=== PATIENT | female | born 1975 | race Caucasian/White ===

== ENCOUNTER 2016-08-20 14:16 | Emergency (ER) | payer MEDICAID, MEDICARE, OTHER ==
[~2016-08-20] VITALS: Ht 160 cm; Wt 62.0 kg
[~2016-08-20 14:16] MED LIST: AMAN100UDC PEG; AMBI5TAB PO; BACL10TA PEG; DESI10TA TUBE; DIAZ5 PO; ESCI10TA TUBE; METHY10 TUBE; MODA200T12 TUBE; POTA10SO12 TUBE; VALP250S18 PEG
[2016-08-20 14:44] VITALS: BP 131/66; PULSE 98; RESP 15; TEMP 98.3; O2SAT 95
--- NOTE | 2016-08-20 14:54 | PD ---
HPI Chief Complaint: altered mental status Time Seen by Provider: 14:44 Travel History International Travel<30 days: No Contact w/Intl Traveler<30days: No Traveled to known affect area: No History of Present Illness HPI 41-year-old female with history of traumatic brain injury, contractures, presents to the ER today brought in by her mom because her mom states that over the last few days patient has been getting less responsive, having higher temperature than her usual, and mom has noticed bleeding from her right ear. Mom states that she has had her ears irrigated for earwax recently. Mom denies any other issues. Patient is nonverbal and unable to give me any further history. Modifying Factors: None Associated Signs & Symptoms: Elevated temperatures, altered mental status, right ear bleeding Risk factors: History of TBI PFSH Past Medical History Seizures: Yes Past Surgical History Section: Yes Neurologic Surgery: Yes Other Surgery: Yes (BREAT AUGMENTATION) Social History Alcohol Use: No Tobacco Use: No Substance Use: No Allergies-Medications (Allergen,Severity, Reaction): Coded Allergies: Amoxicillin (Verified Allergy, Severe, RASH, 04/24/16) Bactrim (Verified Allergy, Severe, RASH, 04/24/16) Cipro (Verified Allergy, Intermediate, Rash, 04/24/16) Reported Meds & Prescriptions Reported Meds & Active Scripts Active Ritalin IR (Methylphenidate HCl) 10 Mg Tab 10 Mg TUBE BIDAC Escitalopram (Escitalopram Oxalate) 10 Mg Tab 10 Mg TUBE DAILY Modafinil 200 Mg Tab 200 Mg TUBE BID Reported Desipramine (Desipramine HCl) 10 Mg Tab 10 Mg TUBE DAILY Ambien (Zolpidem Tartrate) 5 Mg Tab 5 Mg PO BID@0600,0900 Baclofen 10 Mg Tab 15 Mg PEG QID Valium (Diazepam) 5 Mg Tab 5 Mg PO QID PRN Amantadine Liq (Amantadine HCl) 50 Mg/5 Ml Soln 50 Mg PEG BID@0800,1200 Depakene Liq (Valproic Acid) 250 Mg/5 Ml Syp 500 Mg PEG TID 60 Days Review of Systems ROS Limitations: Altered Mental Status Physical Exam Narrative GENERAL: Well-nourished, contracted middle age white female patient who is awake , not in acute distress. SKIN: Warm and dry. HEAD: Normocephalic. EYES: No scleral icterus. No injection or drainage. Ears: Left TM intact, with no bulging or erythema. There is notable red blood in the right canal, punctured TM notable. NECK: Supple, trachea midline. CARDIOVASCULAR: Regular rate and rhythm without murmurs, gallops, or rubs. RESPIRATORY: Breath sounds equal bilaterally. No accessory muscle use. GASTROINTESTINAL: Abdomen soft, non-tender, nondistended. G-tube in place. MUSCULOSKELETAL: No cyanosis, or edema. BACK: Nontender without obvious deformity. No CVA tenderness. Data Data Last Documented VS Vital Signs Date Time Temp Pulse Resp B/P Pulse Ox O2 Delivery O2 Flow Rate FiO2 08/20/16 15:00 98 Room Air 08/20/16 15:00 84 20 08/20/16 14:44 98.3 131/66 Orders Electrocardiogram (08/20/16 14:44) Complete Blood Count With Diff (08/20/16 14:44) Comprehensive Metabolic Panel (08/20/16 14:44) Lactic Acid Sepsis Protocol (08/20/16 14:44) Urinalysis - C+S If Indicated (08/20/16 14:44) Blood Culture (08/20/16 14:44) Chest, Single Ap (08/20/16 14:44) Blood Glucose (08/20/16 14:44) Ecg Monitoring (08/20/16 14:44) Iv Access Insert/Monitor (08/20/16 14:44) Oximetry (08/20/16 14:44) Oxygen Administration (08/20/16 14:44) Ct Brain W/O Iv Contrast(Rout) (08/20/16 14:44) Consult Vascular Access Team (08/20/16 ) Vascular Poc Ultrasound (08/20/16 ) Sodium Chlor 0.9% 1000 Ml Inj (Ns 1000 M (08/20/16 17:00) Labs Laboratory Tests Test 08/20/16 08/20/16 08/20/16 16:02 16:03 16:25 White Blood Count 6.3 TH/MM3 Red Blood Count 4.12 MIL/MM3 Hemoglobin 13.2 GM/DL Hematocrit 39.3 % Mean Corpuscular Volume 95.3 FL Mean Corpuscular Hemoglobin 32.0 PG Mean Corpuscular Hemoglobin 33.6 % Concent Red Cell Distribution Width 12.5 % Platelet Count 282 TH/MM3 Mean Platelet Volume 9.7 FL Neutrophils (%) (Auto) 62.8 % Lymphocytes (%) (Auto) 27.1 % Monocytes (%) (Auto) 7.3 % Eosinophils (%) (Auto) 2.5 % Basophils (%) (Auto) 0.3 % Neutrophils # (Auto) 3.9 TH/MM3 Lymphocytes # (Auto) 1.7 TH/MM3 Monocytes # (Auto) 0.5 TH/MM3 Eosinophils # (Auto) 0.2 TH/MM3 Basophils # (Auto) 0.0 TH/MM3 CBC Comment DIFF FINAL Differential Comment Sodium Level 141 MEQ/L Potassium Level 4.5 MEQ/L Chloride Level 108 MEQ/L Carbon Dioxide Level 28.3 MEQ/L Anion Gap 5 MEQ/L Blood Urea Nitrogen 9 MG/DL Creatinine 0.53 MG/DL Estimat Glomerular Filtration 127 ML/MIN Rate Random Glucose 79 MG/DL Calcium Level 8.9 MG/DL Total Bilirubin 0.3 MG/DL Aspartate Amino Transf 9 U/L (AST/SGOT) Alanine Aminotransferase 32 U/L (ALT/SGPT) Alkaline Phosphatase 96 U/L Total Protein 7.2 GM/DL Albumin 3.6 GM/DL Lactic Acid Level 0.8 mmol/L Urine Color LIGHT-YELLOW Urine Turbidity CLEAR Urine pH 5.5 Urine Specific [place] 1.008 Urine Protein NEG mg/dL Urine Glucose (UA) NEG mg/dL Urine Ketones 10 mg/dL Urine Occult Blood NEG Urine Nitrite NEG Urine Bilirubin NEG Urine Urobilinogen LESS THAN 2.0 MG/DL Urine Leukocyte Esterase NEG Urine RBC LESS THAN 1 /hpf Urine WBC 1 /hpf Urine Mucus FEW /lpf Microscopic Urinalysis Comment CATH-CULT NOT IND MDM Medical Decision Making Medical Screen Exam Complete: Yes Emergency Medical Condition: Yes Medical Record Reviewed: Yes Interpretation(s) Laboratory Tests Test 08/20/16 08/20/16 16:02 16:25 Chloride Level 108 MEQ/L (98-107) Aspartate Amino Transf 9 U/L (15-37) (AST/SGOT) Urine Ketones 10 mg/dL (NEG) Urine Mucus FEW /lpf (OCC) Last [address] 08/20/16 7974 Signed Impressions: Service Date/Time: Saturday, August 20, 2016 15:14 - CONCLUSION: 1. 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 2. Ventricles unchanged in size from prior. There is a ventriculostomy in good position. Jason Valdovinos MD Chest X-Ray 08/20/16 1444 Signed Impressions: Service Date/Time: Saturday, August 20, 2016 15:13 - CONCLUSION: No acute disease. There is no evidence of pneumonia. Alejandro Gamez MD Differential Diagnosis Altered mental status, elevated temperature, right ear bleedingotitis media versus sepsis versus malfunctioning CSF shunt versus acute intracranial processes Narrative Course CAT scan did not show any signs of acute intracranial processes. Chest x-ray was unremarkable. Lab work did not indicate significant dehydration or metabolic issues or any signs of sepsis. She has a right TM perforation. I have notified mom not to put any fluids into the right ear. Follow-up with ENT. At this point, I do not see any other significant acute issues. Vital signs are stable in the ER. I have offered to admit the patient as an observation but at this point, mom states that she is comfortable to take her home. She should follow-up with her physician. Return for any worsening in symptoms as needed. The plan has been discussed with mom and she states understanding. Diagnosis Primary Impression: UNSPECIFIED PERFORATION OF TYMPANIC MEMBRANE, RIGHT EAR Additional Impression: ALTERED MENTAL STATUS, UNSPECIFIED Disposition: DISCHARGE HOME Condition: Stable Linda Sanz MD Aug 20, 2016 14:54
[2016-08-20 15:00] VITALS: O2SAT 98
--- NOTE | 2016-08-20 15:29 | RADRPT ---
EXAM DATE/TIME: 08/20/2016 15:13 [facility] COMPARISON: CHEST SINGLE AP, June 14, 2012, 3:36. INDICATIONS : Fever for 2 days. MEDICAL HISTORY : Traumatic brain injury; brain bleed. SURGICAL HISTORY : Craniotomy. GUN FITTER Shunt ENCOUNTER: Initial ACUITY: 2 days PAIN SCORE: Non-responsive. LOCATION: Bilateral chest FINDINGS: A single view of the chest demonstrates the lungs to be symmetrically aerated without evidence of mas s, infiltrate or effusion. The cardiomediastinal contours are unremarkable. Osseous structures are intact. Shunt catheter tubing is projected over the chest and upper abdomen. There are multiple overl mica cardiac leads. CONCLUSION: No acute disease. There is no evidence of pneumonia. Alejandro Gamez MD on August 20, 2016 at 15:24 Board Certified Radiologist. This report was verified electronically.
--- NOTE | 2016-08-20 15:38 | RADRPT ---
EXAM DATE/TIME: 08/20/2016 15:14 [facility] COMPARISON: CT BRAIN W/O CONTRAST, April 24, 2016, 16:46. INDICATIONS : Altered mental status. RADIATION DOSE: 56.35 CTDIvol (mGy) MEDICAL HISTORY : Seizures. SURGICAL HISTORY : Craniotomy. ENCOUNTER: Initial ACUITY: 1 day PAIN SCALE: Non-responsive LOCATION: cranial TECHNIQUE: Multiple contiguous axial images were obtained of the head. Using automated exposure control and adj ustment of the mA and/or kV according to patient size, radiation dose was kept as low as reasonably a chievable to obtain optimal diagnostic quality images. FINDINGS: There is a sizable area of encephalomalacia involving the right temporal and frontal cortex. There is a ventriculostomy which enters from a left frontal approach. The ventricles are normal in size and c onfiguration. There is no acute intracranial hemorrhage. No abnormal extra-axial fluid collections are seen. The ap pearance of the posterior fossa is unremarkable. The examination is stable compared to previous dated 04/24/16. Bone windowed images demonstrate postcraniotomy changes along the right parietal region. The osseous structures are otherwise intact. CONCLUSION: 1. 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 2. Ventricles unchanged in size from prior. There is a ventriculostomy in good position. Jason Valdovinos MD on August 20, 2016 at 15:35 Board Certified Radiologist. This report was verified electronically.
[2016-08-20 16:22] LABS: AUTOMATED NEUTROPHIL # 3.9 TH/MM3 (1.8-7.7); BASOPHIL % 0.3 % (0.0-2.0); EOSINOPHIL # 0.2 TH/MM3 (0-0.4); EOSINOPHIL % 2.5 % (0.0-4.0); HEMATOCRIT 39.3 % (35.0-46.0); HEMO FLAGS DIFF FINAL; LYMPH % 27.1 % (9.0-44.0); LYMPHOCYTE # 1.7 TH/MM3 (1.0-4.8); MEAN CELL VOLUME 95.3 FL (80.0-100.0); MEAN CORPUSCULAR HGB CONC 33.6 % (32.0-36.0); MONO % 7.3 % (0.0-8.0); NEUT % 62.8 % (16.0-70.0); PLATELET COUNT 282 TH/MM3 (150-450); RED BLOOD COUNT 4.12 MIL/MM3 (4.00-5.30); RED CELL DISTRIBUTION WIDTH 12.5 % (11.6-17.2); WHITE BLOOD COUNT 6.3 TH/MM3 (4.0-11.0)
[2016-08-20 16:43] LABS: ANION GAP 5 MEQ/L (5-15); AST (GOT) 9 U/L (15-37); BICARBONATE 28.3 MEQ/L (21.0-32.0); BLOOD UREA NITROGEN 9 MG/DL (7-18); CHLORIDE 108 MEQ/L (98-107); GLOMERULAR FILTRATION RATE 127 ML/MIN (>89); POTASSIUM 4.5 MEQ/L (3.5-5.1); SODIUM (NA) 141 MEQ/L (136-145)
[2016-08-20 16:46] LABS: ALKALINE PHOSPHATASE 96 U/L (45-117); ALT (GPT) 32 U/L (10-53); TOTAL BILIRUBIN ADULT 0.3 MG/DL (0.2-1.0)
[2016-08-20 16:51] LABS: BLOOD, URINE NEG (NEG); GLUCOSE,URINE NEG (NEG); KETONE, URINE 10 mg/dL (NEG); MUCUS URINE FEW /lpf (OCC); NITRITE,URINE NEG (NEG); PH, URINE 5.5 (5.0-8.5); URINE COLOR LIGHT-YELLOW (YELLW/STRAW)
[2016-08-20 16:52] LABS: COMMENT (UR) CATH-CULT NOT IND; CULTURE IF INDICATED CATH CULTURE NOT IND
[2016-08-20] MEDS ORDERED: SODIUM CHLOR 0.9% 1000 ML INJ 1,000 ML IV ONE (17:00)
[2016-08-20 18:00] VITALS: BP 129/70; PULSE 83; RESP 15; O2SAT 97
--- NOTE | 2016-08-21 08:49 | EKG ---
Date Performed: 08/20/2016 Time Performed: 15:39:46 PTAGE: 41 years EKG: Sinus rhythm NORMAL ECG NO PREVIOUS TRACING DOCTOR: Anup Daniel Interpretating Date/Time 08/21/2016 08:43:50
[2016-09-11] MEDS ORDERED: METHY10 TUBE (15:36)
[2016-11-13] MEDS ORDERED: CLIN75SO G-TUBE (21:26)
[2016-11-13] MEDS ORDERED: NYST15T TOPICAL (21:26)
[2016-12-04] MEDS ORDERED: DESI10TA TUBE (16:40)
== END 2016-08-20 18:30 | disposition home or self-care (01) ==
LOC: NEPC 14:16
DX: R41.82 Altered mental status, unspecified (principal); H72.90 Unspecified perforation of tympanic membrane, unspecified ear; H92.21 Otorrhagia, right ear; R56.9 Unspecified convulsions; G93.89 Other specified disorders of brain; R50.9 Fever, unspecified; Z87.820 Personal history of traumatic brain injury
CPT/HCPCS: 70450; 71010; 80053; 81001; 83605; 85025; 87040; 93005; 96360; 99285; J7030

== ENCOUNTER 2017-04-01 09:45 | Emergency (ER) | payer MEDICARE, OTHER ==
[~2017-04-01] VITALS: Ht 165.1 cm; Wt 80.0 kg
[~2017-04-01 09:45] MED LIST changes: +CLIN75SO G-TUBE; +NYST15T TOPICAL; -POTA10SO12 TUBE
[2017-04-01 09:54] VITALS: BP 122/77; PULSE 72; RESP 18; O2SAT 99
--- NOTE | 2017-04-01 10:09 | PD ---
HPI Chief Complaint: Allergic/Adverse Reaction Time Seen by Provider: 10:01 Travel History International Travel<30 days: No Contact w/Intl Traveler<30days: No Traveled to known affect area: No History of Present Illness HPI 42-year-old female patient with history of traumatic brain injury, in a vegetative state, living at home with home health care, presents to the ER today brought in by mom because of vomiting this morning and mom states that she noticed some redness on the left hand and was concerned of a allergic reaction, gave her Benadryl. She is nonverbal and not able to give any further history. Mom states that she is been a little bit more lethargic this morning as well than usual. Modifying Factors: None Associated Signs & Symptoms: Vomiting, altered mental status, left hand swelling Risk Factors: Traumatic brain injury PFSH Past Medical History Diminished Hearing: No Neurologic: Yes (TBI) Seizures: Yes ?: Not Past Surgical History Abdominal Surgery: Yes (G-TUBE) Section: Yes Neurologic Surgery: Yes (FLAP/ SHUNT BRAIN SX) Other Surgery: Yes (BREAT AUGMENTATION) Social History Alcohol Use: No Tobacco Use: No Substance Use: No Allergies-Medications (Allergen,Severity, Reaction): Coded Allergies: amoxicillin (Unverified Allergy, Severe, RASH, 04/01/17) sulfamethoxazole (Unverified Allergy, Severe, RASH, 04/01/17) trimethoprim (Unverified Allergy, Severe, RASH, 04/01/17) ciprofloxacin (Unverified Allergy, Intermediate, Rash, 04/01/17) Reported Meds & Prescriptions Reported Meds & Active Scripts Active Macrobid (Nitrofurantoin Monoh/Nitrofur Macro) 100 Mg Cap 100 Mg PO BID 7 Days Desipramine (Desipramine HCl) 10 Mg Tab 10 Mg TUBE DAILY Nystatin Topical (Nystatin) 100,000 unit/gm Cream 1 Applic TOPICAL BID Clindamycin Liq 75 Mg/5 Ml Soln 150 Mg G-TUBE Q6H Ritalin IR (Methylphenidate HCl) 10 Mg Tab 10 Mg TUBE BIDAC Escitalopram (Escitalopram Oxalate) 10 Mg Tab 10 Mg TUBE DAILY Modafinil 200 Mg Tab 200 Mg TUBE BID Reported Ambien (Zolpidem Tartrate) 5 Mg Tab 5 Mg PO BID@0600,0900 Baclofen 10 Mg Tab 15 Mg PEG QID Valium (Diazepam) 5 Mg Tab 5 Mg PO QID PRN Amantadine Liq (Amantadine HCl) 50 Mg/5 Ml Soln 50 Mg PEG BID@0800,1200 Depakene Liq (Valproic Acid) 250 Mg/5 Ml Syp 500 Mg PEG TID 60 Days Review of Systems ROS Limitations: Unresponsive (nonverbal) Physical Exam Narrative GENERAL: Well-developed middle age white female patient who is nonverbal, in a vegetative state. History is per mother. SKIN: Focused skin assessment warm/dry. No notable hives or rashes. HEAD: Atraumatic. Normocephalic. Palpable CSF shunt in place. EYES: Pupils equal and round. No scleral icterus. No injection or drainage. ENT: No nasal bleeding or discharge. Mucous membranes pink and moist. NECK: Trachea midline. No JVD. CARDIOVASCULAR: Regular rate and rhythm. No murmur appreciated. RESPIRATORY: No accessory muscle use. Clear to auscultation. Breath sounds equal bilaterally. GASTROINTESTINAL: Abdomen soft, non-tender, nondistended. Hepatic and splenic margins not palpable. G-tube in place. MUSCULOSKELETAL: No obvious deformities. No clubbing. No cyanosis. No edema. EXTREMITIES: No clubbing, cyanosis. Notable for left hand edema with no surrounding erythema. NEUROLOGICAL: Nonverbal, face is symmetrical. PSYCHIATRIC: Nonverbal. Data Data Last Documented VS Vital Signs Date Time Temp Pulse Resp B/P (MAP) Pulse Ox O2 Delivery O2 Flow Rate FiO2 04/01/17 10:05 64 16 100 Room Air 04/01/17 09:54 122/77 (92) Orders Orders Electrocardiogram (04/01/17 10:01) Complete Blood Count With Diff (04/01/17 10:01) Comprehensive Metabolic Panel (04/01/17 10:01) Urinalysis - C+S If Indicated (04/01/17 10:01) Blood Culture (04/01/17 10:01) Chest, Single Ap (04/01/17 10:01) Ct Brain W/O Iv Contrast(Rout) (04/01/17 10:01) Blood Glucose (04/01/17 10:01) Ecg Monitoring (04/01/17 10:01) Iv Access Insert/Monitor (04/01/17 10:01) Cath For Specimen (04/01/17 10:01) Oximetry (04/01/17 10:01) Sodium Chloride 0.9% Flush (Ns Flush) (04/01/17 10:15) Abdomen, Flat & Upright (04/01/17 10:01) Urine Culture (04/01/17 10:25) Sodium Chlor 0.9% 1000 Ml Inj (Ns 1000 M (04/01/17 11:30) Nitrofurantoin Monohyd Macrocr (Macrobid (04/01/17 12:15) Labs Laboratory Tests Test 04/01/17 10:25 White Blood Count 5.0 TH/MM3 Red Blood Count 4.09 MIL/MM3 Hemoglobin 13.2 GM/DL Hematocrit 38.8 % Mean Corpuscular Volume 94.8 FL Mean Corpuscular Hemoglobin 32.2 PG Mean Corpuscular Hemoglobin Concent 34.0 % Red Cell Distribution Width 12.6 % Platelet Count 265 TH/MM3 Mean Platelet Volume 9.6 FL Neutrophils (%) (Auto) 54.4 % Lymphocytes (%) (Auto) 36.0 % Monocytes (%) (Auto) 6.4 % Eosinophils (%) (Auto) 2.4 % Basophils (%) (Auto) 0.8 % Neutrophils # (Auto) 2.7 TH/MM3 Lymphocytes # (Auto) 1.8 TH/MM3 Monocytes # (Auto) 0.3 TH/MM3 Eosinophils # (Auto) 0.1 TH/MM3 Basophils # (Auto) 0.0 TH/MM3 CBC Comment DIFF FINAL Differential Comment Urine Color LIGHT-YELLOW Urine Turbidity CLEAR Urine pH 6.5 Urine Specific [place] 1.009 Urine Protein NEG mg/dL Urine Glucose (UA) NEG mg/dL Urine Ketones NEG mg/dL Urine Occult Blood NEG Urine Nitrite POS Urine Bilirubin NEG Urine Urobilinogen LESS THAN 2.0 MG/DL Urine Leukocyte Esterase LARGE Urine RBC 2 /hpf Urine WBC 10 /hpf Urine WBC Clumps RARE Urine Squamous Epithelial Cells <1 /hpf Urine Bacteria MANY /hpf Microscopic Urinalysis Comment CATH-CULTURE IND Blood Urea Nitrogen 9 MG/DL Creatinine 0.42 MG/DL Random Glucose 83 MG/DL Total Protein 6.8 GM/DL Albumin 3.4 GM/DL Calcium Level 8.0 MG/DL Alkaline Phosphatase 90 U/L Aspartate Amino Transf (AST/SGOT) 6 U/L Alanine Aminotransferase (ALT/SGPT) 21 U/L Total Bilirubin 0.2 MG/DL Sodium Level 145 MEQ/L Potassium Level 3.7 MEQ/L Chloride Level 114 MEQ/L Carbon Dioxide Level 24.3 MEQ/L Anion Gap 7 MEQ/L Estimat Glomerular Filtration Rate 165 ML/MIN MDM Medical Decision Making Medical Screen Exam Complete: Yes Emergency Medical Condition: Yes Medical Record Reviewed: Yes Interpretation(s) EKG shows NSR, no ST elevation or depression, and no arrhythmias. No significant T-wave inversions. Laboratory Tests Test 04/01/17 10:25 Urine Nitrite POS (NEG) Urine Leukocyte Esterase LARGE (NEG) Urine WBC 10 /hpf (0-5) Urine WBC Clumps RARE (NONE) Urine Bacteria MANY /hpf (NONE) Creatinine 0.42 MG/DL (0.50-1.00) Calcium Level 8.0 MG/DL (8.5-10.1) Aspartate Amino Transf (AST/SGOT) 6 U/L (15-37) Chloride Level 114 MEQ/L (98-107) Last 24 hours Impressions Chest X-Ray 04/01/17 1001 Signed Impressions: Service Date/Time: Thursday, April 01, 2017 10:51 - CONCLUSION: No acute cardiopulmonary findings. Jason Valdovinos MD Differential Diagnosis Altered mental status, vomiting: Allergic reaction versus Benadryl side effect versus metabolic issues versus sepsis versus shunt failure Narrative Course CAT scan of the brain did not reveal any signs of acute processes, shunt is in place. Vital signs are stable in the ER. Lab work is unremarkable. Patient's mom has several patches of homeopathic therapy for muscle spasms and sleep issues on the patient. She has multiple melatonin patches and naturopathic remedy patches. At this point, I had asked her to remove them. It is unclear whether this could be contributing. However, mother states that she has been using the same patches for several years without problems. I do not see other signs of acute processes although the patient does have a UTI. I do not see any obvious signs of allergic reaction in the ER. Patient is not on any new medications. My plan would be to treat her with antibiotics and release her with follow-up to primary care physician. Return for new issues as needed. For the time being, I would recommend that we do not use any over remedies since this could interfere with medications already been given. The plan was discussed with patient's mom and she states understanding. Diagnosis Primary Impression: UTI (urinary tract infection) Med/Other Pt SpecificInfo: Prescription(s) given Scripts Nitrofurantoin Monohydrate Macrocrystals (Macrobid) 100 Mg Cap 100 MG PO BID for Infection for 7 Days, #14 CAP 0 Refills Prov: Linda Sanz MD 04/01/17 Disposition: 01 DISCHARGE HOME Condition: Stable Linda Sanz MD Apr 01, 2017 10:09
[2017-04-01] MEDS ORDERED: SODIUM CHLORIDE 0.9% FLUSH 5 ML FLUSH IV FLUSH PRN (10:15)
--- NOTE | 2017-04-01 10:47 | RADRPT ---
EXAM DATE/TIME: 04/01/2017 10:25 [facility] COMPARISON: CT BRAIN W/O CONTRAST, August 20, 2016, 15:14. INDICATIONS : Altered mental status. RADIATION DOSE: 56.35 CTDIvol (mGy) MEDICAL HISTORY : Seizures. Traumatic head injury. SURGICAL HISTORY : Brain surgery, shunt. ENCOUNTER: Initial ACUITY: 1 day PAIN SCALE: Non-responsive LOCATION: Cranial TECHNIQUE: Multiple contiguous axial images were obtained of the head. Using automated exposure control and adj ustment of the mA and/or kV according to patient size, radiation dose was kept as low as reasonably a chievable to obtain optimal diagnostic quality images. DICOM format image data is available electro nically for review and comparison. FINDINGS: Evidence for previous surgery is seen on the right with volume loss in the temporal lobe. Shunt is in good position. The left hemisphere shows some periventricular white matter changes. The posterior fossa is normal. CONCLUSION: Stable CT scan of the head. Andrew Valdovinos MD FACR on April 01, 2017 at 10:42 Board Certified Radiologist. This report was verified electronically.
[2017-04-01 10:49] LABS: AUTOMATED NEUTROPHIL # 2.7 TH/MM3 (1.8-7.7); BASOPHIL % 0.8 % (0.0-2.0); EOSINOPHIL # 0.1 TH/MM3 (0-0.4); EOSINOPHIL % 2.4 % (0.0-4.0); HEMATOCRIT 38.8 % (35.0-46.0); HEMO FLAGS DIFF FINAL; LYMPHOCYTE # 1.8 TH/MM3 (1.0-4.8); MEAN CELL VOLUME 94.8 FL (80.0-100.0); MEAN CORPUSCULAR HEMOGLOBIN 32.2 PG (27.0-34.0); MONO % 6.4 % (0.0-8.0); NEUT % 54.4 % (16.0-70.0); PLATELET COUNT 265 TH/MM3 (150-450); RED BLOOD COUNT 4.09 MIL/MM3 (4.00-5.30); RED CELL DISTRIBUTION WIDTH 12.6 % (11.6-17.2)
[2017-04-01 10:56] LABS: BACTERIA, URINE MANY /hpf; BLOOD, URINE NEG (NEG); COMMENT (UR) CATH-CULTURE IND; CULTURE IF INDICATED CATH CULTURE IND; GLUCOSE,URINE NEG (NEG); KETONE, URINE NEG (NEG); NITRITE,URINE POS (NEG); PH, URINE 6.5 (5.0-8.5); SQUAMOUS EPITHELIAL CELL URINE <1 /hpf (0-5); URINE COLOR LIGHT-YELLOW (YELLW/STRAW)
[2017-04-01 11:11] LABS: ANION GAP 7 MEQ/L (5-15); AST (GOT) 6 U/L (15-37); BICARBONATE 24.3 MEQ/L (21.0-32.0); BLOOD UREA NITROGEN 9 MG/DL (7-18); CHLORIDE 114 MEQ/L (98-107); GLOMERULAR FILTRATION RATE 165 ML/MIN (>89); POTASSIUM 3.7 MEQ/L (3.5-5.1); SODIUM (NA) 145 MEQ/L (136-145)
[2017-04-01 11:12] LABS: ALT (GPT) 21 U/L (10-53)
[2017-04-01 11:14] LABS: ALKALINE PHOSPHATASE 90 U/L (45-117); TOTAL BILIRUBIN ADULT 0.2 MG/DL (0.2-1.0)
--- NOTE | 2017-04-01 11:22 | RADRPT ---
EXAM DATE/TIME: 04/01/2017 10:51 [facility] COMPARISON: CHEST SINGLE AP, August 20, 2016, 15:13. INDICATIONS : Syncope MEDICAL HISTORY : Seizures Traumatic brain injury SURGICAL HISTORY : None. Brain surgery shunt ENCOUNTER: Initial ACUITY: 1 day PAIN SCORE: Non-responsive. LOCATION: chest FINDINGS: A single view of the chest demonstrates the lungs to be symmetrically aerated without evidence of mas s, infiltrate or effusion. The cardiomediastinal contours are unremarkable. Osseous structures are intact. Incidental note is made of the tubing from a ventriculoperitoneal shunt CONCLUSION: No acute cardiopulmonary findings. Jason Valdovinos MD on April 01, 2017 at 11:19 Board Certified Radiologist. This report was verified electronically.
[2017-04-01] MEDS ORDERED: SODIUM CHLOR 0.9% 1000 ML INJ 1,000 ML IV ONE (11:30)
--- NOTE | 2017-04-01 11:50 | RADRPT ---
EXAM DATE/TIME: 04/01/2017 10:54 [facility] COMPARISON: No previous studies available for comparison. INDICATIONS : Nausea and vomiting MEDICAL HISTORY : Seizures. Traumatic brain injury SURGICAL HISTORY : Brain surgery shunt ENCOUNTER: Initial ACUITY: 1 day PAIN SCORE: Non-responsive. LOCATION: Abdomen FINDINGS: Shunt tubing is noted. Bowel gas pattern is unremarkable. There is no free air or obstruction. CONCLUSION: Nonspecific bowel gas pattern. Shunt tubing is noted. G-tube is noted. Andrew Valdovinos MD FACR on April 01, 2017 at 11:33 Board Certified Radiologist. This report was verified electronically.
[2017-04-01] MEDS ORDERED: MACR100C2 PO (12:09)
[2017-04-01] MEDS ORDERED: NITROFURANTOIN MONOHYD MACROCR 100 MG CAP PO ONE (12:15)
--- NOTE | 2017-04-01 14:33 | EKG ---
Date Performed: 04/01/2017 Time Performed: 10:12:52 PTAGE: 42 years EKG: Sinus rhythm NORMAL ECG PREVIOUS TRACING : 08/20/2016 15.39 Compared to prior tracing no significant change DOCTOR: Anat Sequeira Interpretating Date/Time 04/01/2017 14:32:05
== END 2017-04-01 13:07 | disposition home or self-care (01) ==
LOC: NEPE 09:45
DX: N39.0 Urinary tract infection, site not specified (principal); B96.1 Klebsiella pneumoniae [K. pneumoniae] as the cause of diseases classified elsewhere; Z87.820 Personal history of traumatic brain injury; Z93.1 Gastrostomy status; Z79.899 Other long term (current) drug therapy
CPT/HCPCS: 70450; 71010; 74020; 80053; 81001; 85025; 86403; 87040; 87077; 87086; 87186; 87205; 93005; 96360; 99285; J7030; P9612